=== PATIENT | female | born 1975 ===

== ENCOUNTER 2017-02-08 19:58 | Emergency (ER) | payer MEDICAID ==
[2017-02-08 20:12] VITALS: BMI 34.9
[2017-02-08] MEDS ORDERED: Amoxicillin-Clav 875-125 mg Tab PO STA (20:38)
--- NOTE | 2017-02-08 20:38 | ED PDOC ---
Arrival/HPI - General Chief Complaint: Trauma Time Seen by Provider: 02/08/17 20:36 Historian: Patient - History of Present Illness Narrative History of Present Illness (Text): 02/08/17 20:37 This 41 yo female presents to this ED c/o left foot injury x 4 days. Patient stated she tripped and fell down, causing multiple abrasion of knee and foot. She feels left foot abrasion is getting infected, since foot is painful. Denies other complains. Denies knee pain, or hip pain. Patient last Tetanus is UKN. Time/Duration: Other (4 days) Quality: Aching Context: Home Past Medical History - Provider Review Nursing Documentation Reviewed: Yes - Infectious Disease Hx of Infectious Diseases: None - Reproductive Menopause: No - Musculoskeletal/Rheumatological Hx Herniated Disk: Yes - Psychiatric Hx Substance Use: No - Surgical History Hx Musculoskeletal Surgery: Yes (back surgery) Other/Comment: spine surgery - Anesthesia Hx Anesthesia: Yes Hx Anesthesia Reactions: No Hx Malignant Hyperthermia: No Family/Social History - Physician Review Nursing Documentation Reviewed: Yes Family/Social History: No Known Family HX Smoking Status: Unknown If Ever Smoked Hx Alcohol Use: No Hx Substance Use: No Allergies/Home Meds Allergies/Adverse Reactions: Allergies No Known Allergies Allergy (Verified 02/08/17 20:12) Review of Systems - Review of Systems Constitutional: Normal. absent: Fatigue, Weight Change, Fevers Eyes: Normal ENT: Normal Respiratory: Normal. absent: SOB, Cough Cardiovascular: Normal. absent: Chest Pain, Palpitations Gastrointestinal: Normal. absent: Abdominal Pain, Nausea, Vomiting Genitourinary Female: Normal Musculoskeletal: Other (see hpi) Skin: Normal Neurological: Normal. absent: Headache, Dizziness, Focal Weakness, Speech Changes, Facial Droop Endocrine: Normal Hemo/Lymphatic: Normal Psychiatric: Normal Physical Exam Vital Signs Temp Pulse Resp BP Pulse Ox 02/08/17 22:29 98.7 F 89 16 120/76 98 02/08/17 20:05 99.0 F 96 H 20 122/79 100 Temperature: Afebrile Blood Pressure: Normal Pulse: Regular Respiratory Rate: Normal Appearance: Positive for: Well-Appearing, Non-Toxic, Comfortable Pain Distress: None Mental Status: Positive for: Alert and Oriented X 3 - Systems Exam Head: Present: Atraumatic, Normocephalic Pupils: Present: PERRL Extroacular Muscles: Present: EOMI Conjunctiva: Present: Normal Mouth: Present: Moist Mucous Membranes Pharnyx: Present: Normal. No: ERYTHEMA, EXUDATE, TONSILS ENLARGED Neck: Present: Normal Range of Motion Respiratory/Chest: Present: Clear to Auscultation, Good Air Exchange. No: Respiratory Distress, Accessory Muscle Use Cardiovascular: Present: Regular Rate and Rhythm, Normal S1, S2. No: Murmurs Abdomen: Present: Normal Bowel Sounds. No: Tenderness, Distention, Peritoneal Signs Back: Present: Normal Inspection. No: CVA Tenderness Upper Extremity: Present: Normal Inspection, Normal ROM, NORMAL PULSES, Capillary Refill < 2s. No: Cyanosis, Edema Lower Extremity: Present: NORMAL PULSES, Normal ROM, Neurovascularly Intact, Capillary Refill < 2 s, Other (Multiple abrasion foot. Mild erythematous, but no abscess visuslaized or streaking erythema.). No: Edema Neurological: Present: GCS=15, CN II-XII Intact, Speech Normal, Motor Func Grossly Intact, Normal Sensory Function, Normal Cerebellar Funct, Gait Normal, Memory Normal Skin: Present: Warm, Dry, Normal Color. No: Rashes Psychiatric: Present: Alert, Oriented x 3, Normal Insight, Normal Concentration Medical Decision Making ED Course and Treatment: 02/08/17 22:07 Re-evaluation. Patient feels better. Discussed results and plan with patient who expresses understanding. All questions answered and there is agreement with the plan to discharge home with instructions. Patient stable for discharge. Return if symptoms persist or worsen. Patient is concern for cellulitis. I will order ABX, and to stop using peroxide Re-evaluation Time: 22:07 Reassessment Condition: Re-examined, Improved - RAD Interpretation Narrative RAD Interpretations (Text): 02/08/17 22:07 foot x-rays: No fx or sublux. Radiology Orders: 02/08/17 20:37 FOOT LEFT 3 VIEWS ROUTINE [RAD] Stat - Medication Orders Current Medication Orders: Discontinued Medications Amoxicillin/Clavulanate Potassium (Augmentin 875 Mg-125 Mg Tab) 1 tab PO STAT STA PRN Reason: Protocol Stop: 02/08/17 20:39 Last Admin: 02/08/17 20:47 Dose: 1 tab Tetanus/Reduced Diphtheria/Acell Pertussis (Boostrix Vaccine Inj) 0.5 ml IM .ONCE ONE Stop: 02/08/17 20:40 Last Admin: 02/08/17 20:47 Dose: 0.5 ml Disposition/Present on Arrival - Present on Arrival Any Indicators Present on Arrival: No History of DVT/PE: No History of Uncontrolled Diabetes: No Urinary Catheter: No History of Decub. Ulcer: No History Surgical Site Infection Following: None - Disposition Have Diagnosis and Disposition been Completed?: Yes Diagnosis: Foot pain, Abrasion Disposition: HOME/ ROUTINE Disposition Time: 22:08 Patient Plan: Discharge Condition: GOOD Discharge Instructions (ExitCare): Foot Sprain (ED), Abrasion (ED) Additional Instructions: Call private doctor for follow up visit in 1-2 days. Clean wound with soap and water daily. Take medication as instructed. Return to emergency if symptoms worsen. Prescriptions: Amoxicillin/Clavulanate [Augmentin 875 MG-125 MG] 1 tab PO BID #14 tab Mupirocin 2% Ointment [Bactroban Ointment] 1 appl TP BID #1 tube Referrals: Raman Brizuela [Primary Care Provider] - Follow up with primary
[2017-02-08] MEDS ORDERED: TDAP Vaccine 0.5 mL Syr IM ONE (20:39)
[2017-02-08 22:30] VITALS: BP 120/76; PULSE 89; RESP 16; TEMP 98.7; O2SAT 98
--- NOTE | 2017-02-09 08:28 | RAD ---
PROCEDURE: Left Foot Radiographs. HISTORY: toe pain COMPARISON: None. FINDINGS: BONES: Normal. No fracture. JOINTS: Normal. SOFT TISSUES: Normal. OTHER FINDINGS: None. IMPRESSION: Normal left foot radiographs.
== END 2017-02-08 22:30 | disposition home or self-care (01) ==
LOC: ED 19:58
DX: S90.812A Abrasion, left foot, initial encounter (principal); W19.XXXA Unspecified fall, initial encounter; Y93.89 Activity, other specified; Y92.89 Other specified places as the place of occurrence of the external cause; Z23 Encounter for immunization